=== PATIENT | female | born 1955 | race Two or more races ===

== ENCOUNTER 2019-01-25 09:01 | Inpatient (IN) | payer OTHER ==
[~2019-01-25] VITALS: Ht 165.1 cm; Wt 111.1 kg
[2019-01-25] MEDS ORDERED: HYZAAR 100-251 EACH (09:11)
[2019-01-25] MEDS ORDERED: SYNTHROID175 MCG (09:11)
[2019-01-25] MEDS ORDERED: METFORMIN HCL500 MG (09:11)
[2019-01-29] MEDS ORDERED: CIPRO500 MG PO (09:36)
[2019-01-29] MEDS ORDERED: FLAGYL500MG PO (09:36)
[2019-01-29] MEDS ORDERED: ACIDOPHILUS LA1 EACH PO (09:37)
[2019-01-29] MEDS ORDERED: DICY20TA PO (09:38)
== END 2019-01-29 11:05 | disposition home or self-care (01) | DRG 392 ==
LOC: ER 09:01 → MEDI 20:30
PROVIDERS: ADMIT Specialist
PROC: BW21ZZZ Computerized Tomography (CT Scan) of Abdomen and Pelvis (ICD-10-PCS; principal; 2019-01-25)
DX: K57.32 Diverticulitis of large intestine without perforation or abscess without bleeding (principal); E11.9 Type 2 diabetes mellitus without complications; I10 Essential (primary) hypertension; E03.8 Other specified hypothyroidism; E66.01 Morbid (severe) obesity due to excess calories

== ENCOUNTER 2019-03-22 06:31 | Day surgery (SDC) | payer OTHER ==
[~2019-03-22 06:31] MED LIST: ACIDOPHILUS LA1 EACH PO; CIPRO500 MG PO; COREG CR10 MG PO; DICY20TA PO; FLAGYL500MG PO; HYZAAR 100-251 EACH; METFORMIN HCL500 MG PO; SINGULAIR10 MG PO; SYNTHROID175 MCG; ZANTAC300 MG PO
== END 2019-03-22 16:00 | disposition home or self-care (01) ==
LOC: CIR.AMB 06:31
DX: N84.0 Polyp of corpus uteri (principal); N84.1 Polyp of cervix uteri

== ENCOUNTER 2022-08-08 02:21 | Emergency (ER) | payer OTHER ==
[~2022-08-08] VITALS: Ht 165.1 cm; Wt 104.3 kg
[2022-08-08] MEDS ORDERED: PEPCID AC20 MG PO (14:47)
[2022-08-08] MEDS ORDERED: ZOFRAN8 MG PO (14:47)
== END 2022-08-08 16:04 | disposition home or self-care (01) ==
LOC: ER 02:21
DX: R10.31 Right lower quadrant pain (principal); K57.30 Diverticulosis of large intestine without perforation or abscess without bleeding; E11.9 Type 2 diabetes mellitus without complications; Z79.84 Long term (current) use of oral hypoglycemic drugs; I10 Essential (primary) hypertension; Z88.0 Allergy status to penicillin

== ENCOUNTER 2022-08-17 08:57 | Emergency (ER) | payer OTHER ==
[~2022-08-17] VITALS: Ht 167.6 cm; Wt 85.3 kg
[~2022-08-17 08:57] MED LIST changes: +PEPCID AC20 MG PO; +ZOFRAN8 MG PO
== END 2022-08-17 12:02 | disposition home or self-care (01) ==
LOC: ER 08:57
DX: B02.9 Zoster without complications (principal); E11.9 Type 2 diabetes mellitus without complications; Z79.84 Long term (current) use of oral hypoglycemic drugs; I10 Essential (primary) hypertension; Z88.0 Allergy status to penicillin

== ENCOUNTER 2023-03-03 08:41 | Emergency (ER) | payer OTHER ==
[~2023-03-03] VITALS: Ht 165.1 cm; Wt 108.9 kg
[2023-03-03] MEDS ORDERED: LOVAZA1 GM PO (09:14)
[2023-03-03] MEDS ORDERED: CARVEDILOL12.5 MG (09:15)
[2023-03-03] MEDS ORDERED: CRESTOR10 MG PO (09:15)
[2023-03-03] MEDS ORDERED: COZAAR100 MG PO (09:15)
[2023-03-03] MEDS ORDERED: HYDRODIURIL12.5 MG PO (09:15)
== END 2023-03-03 11:46 | disposition home or self-care (01) ==
LOC: ER 08:41
DX: J45.909 Unspecified asthma, uncomplicated (principal); Z85.850 Personal history of malignant neoplasm of thyroid; I10 Essential (primary) hypertension; Z88.0 Allergy status to penicillin; E11.9 Type 2 diabetes mellitus without complications; Z79.84 Long term (current) use of oral hypoglycemic drugs

== ENCOUNTER 2023-07-05 08:23 | Outpatient (CLI) | payer OTHER ==
[~2023-07-05 08:23] MED LIST changes: +CARVEDILOL12.5 MG; +COZAAR100 MG PO; +CRESTOR10 MG PO; +HYDRODIURIL12.5 MG PO; +LOVAZA1 GM PO
[2023-07-05 09:51] LABS: HEMATOCRIT 39.8 % (36.0-45.00); HEMOGLOBIN 12.8 g/dL (12.0-15.00); MEAN CELL VOLUME 89.5 fL (80.00-100.00); MEAN CORPUSCULAR HEMOGLOBIN 28.9 pg (27.00-32.0); MEAN CORPUSCULAR HGB CONC 32.3 g/dl (32.0-36.0); PLATELET COUNT 281 K/uL (150-450); RED BLOOD COUNT 4.44 M/uL (4.00-6.00); RED CELL DISTRIBUTION WIDTH 15.3 % (11.5-14.5)
[2023-07-05 10:22] LABS: CALCIUM 8.1 mg/dL (8.5-10.1); CREATININE SERUM 1.27 mg/dL (0.55-1.02); GFR 41.72; POTASSIUM 3.76 mEq/L (3.5-5.1)
== END 2023-07-05 08:25 | disposition home or self-care (01) ==
LOC: LAB 08:23
DX: J02.9 Acute pharyngitis, unspecified (principal); R06.03 Acute respiratory distress; E55.9 Vitamin D deficiency, unspecified; J30.9 Allergic rhinitis, unspecified; Z88.0 Allergy status to penicillin

== ENCOUNTER 2023-09-14 08:24 | Emergency (ER) | payer OTHER ==
[~2023-09-14] VITALS: Ht 165.1 cm; Wt 116.6 kg
[2023-09-14 12:10] LABS: HEMATOCRIT 44.2 % (36.0-45.00); HEMOGLOBIN 14.6 g/dL (12.0-15.00); MEAN CELL VOLUME 86.6 fL (80.00-100.00); MEAN CORPUSCULAR HEMOGLOBIN 28.5 pg (27.00-32.0); PLATELET COUNT 279 K/uL (150-450); RED BLOOD COUNT 5.11 M/uL (4.00-6.00); RED CELL DISTRIBUTION WIDTH 15.7 % (11.5-14.5)
== END 2023-09-14 14:56 | disposition home or self-care (01) ==
LOC: ER 08:24
PROVIDERS: Emergency Medicine
DX: J06.9 Acute upper respiratory infection, unspecified (principal); Z20.822 Contact with and (suspected) exposure to COVID-19; Z88.0 Allergy status to penicillin
CPT/HCPCS: 36415; 71046; 94640; 96372; 99284; J2930

== ENCOUNTER → 2023-11-24 07:53 | Outpatient (CLI) | payer OTHER ==
[2023-11-24 08:41] LABS: HEMATOCRIT 40.7 % (36.0-45.00); HEMOGLOBIN 13.3 g/dL (12.0-15.00); MEAN CELL VOLUME 87.8 fL (80.00-100.00); MEAN CORPUSCULAR HEMOGLOBIN 28.6 pg (27.00-32.0); MEAN CORPUSCULAR HGB CONC 32.6 g/dl (32.0-36.0); PLATELET COUNT 328 K/uL (150-450); RED BLOOD COUNT 4.63 M/uL (4.00-6.00); RED CELL DISTRIBUTION WIDTH 15.6 % (11.5-14.5)
[2023-11-24 09:05] LABS: MYCOPLASMA PNEUMONIAE IGM NON REACTIVE (NO REACTIVE)
== END | disposition home or self-care (01) ==
LOC: RAD 07:53
DX: R05.9 Cough, unspecified (principal)

== ENCOUNTER 2023-12-13 07:38 | Outpatient (CLI) | payer OTHER ==
[2023-12-13 08:40] LABS: PH,URINE 5.5 (5.0-8.0); URINE APPEARANCE Clear; URINE BILIRRUBIN Negative (NEGATIVE); URINE BLOOD Small; URINE COLOR Yellow; URINE LEUKOCYTE Negative; URINE NITRATE Negative; URINE PROTEIN Negative (NEGATIVE); URINE UROBILINOGEN 0.2 E.U./dl
[2023-12-13 08:44] LABS: HEMATOCRIT 39.7 % (36.0-45.00); HEMOGLOBIN 13.2 g/dL (12.0-15.00); MEAN CORPUSCULAR HEMOGLOBIN 29.2 pg (27.00-32.0); MEAN CORPUSCULAR HGB CONC 33.2 g/dl (32.0-36.0); PLATELET COUNT 241 K/uL (150-450); RED BLOOD COUNT 4.51 M/uL (4.00-6.00); RED CELL DISTRIBUTION WIDTH 16.3 % (11.5-14.5); URINE BACTERIA 187.7 uL (0.0-1933); URINE EPITHELIAL CELLS 50.5 uL (0.0-38.8); URINE RBC 26.7 uL (0.0-20.8)
[2023-12-13 09:46] LABS: URINE GLUCOSE >=1000 MG/DL (NEGATIVE)
[2023-12-13 09:51] LABS: ALBUMIN 3.4 gm/dL (3.4-5.0); BILIRUBIN TOTAL 0.47 mg/dL (0.3-1.2); CALCIUM 8.8 mg/dL (8.5-10.1); CHOL HDL RATIO 2.2 (0-5.0); CREATININE SERUM 1.15 mg/dL (0.55-1.02); GFR 46.78; GLOBULINA 3.1 G/DL (2.4-3.5); POTASSIUM 4.07 mEq/L (3.5-5.1); TOTAL PROTEIN 6.5 gm/dL (6.4-8.2)
[2023-12-13 15:16] LABS: T4 FREE 1.22 NG/ML (0.76-1.46); TSH 2.22 uIU/mL (0.358-3.74)
== END 2023-12-13 07:39 | disposition home or self-care (01) ==
LOC: LAB 07:38
PROVIDERS: ATTEND Internal Medicine
DX: E03.8 Other specified hypothyroidism (principal); E78.5 Hyperlipidemia, unspecified; I10 Essential (primary) hypertension

== ENCOUNTER 2023-12-13 08:24 | Outpatient (CLI) | payer OTHER | END 2023-12-13 08:28 | disposition home or self-care (01) | LOC: RAD 08:24 | PROVIDERS: ATTEND Internal Medicine | DX: M70.70 Other bursitis of hip, unspecified hip (principal) ==

== ENCOUNTER 2024-03-21 08:06 | Outpatient (CLI) | payer OTHER ==
[2024-03-21 08:51] LABS: URINE APPEARANCE Clear; URINE BILIRRUBIN Negative (NEGATIVE); URINE COLOR Yellow; URINE LEUKOCYTE Negative; URINE NITRATE Negative; URINE PROTEIN Trace (NEGATIVE); URINE UROBILINOGEN 0.2 E.U./dl
[2024-03-21 08:51] LABS: HEMATOCRIT 41.8 % (36.0-45.00); HEMOGLOBIN 13.8 g/dL (12.0-15.00); MEAN CELL VOLUME 88.8 fL (80.00-100.00); MEAN CORPUSCULAR HEMOGLOBIN 29.3 pg (27.00-32.0); PLATELET COUNT 230 K/uL (150-450); RED CELL DISTRIBUTION WIDTH 16.8 % (11.5-14.5)
[2024-03-21 08:56] LABS: URINE BACTERIA 49.1 uL (0.0-1933); URINE EPITHELIAL CELLS 18.2 uL (0.0-38.8); URINE RBC 27.9 uL (0.0-20.8); URINE WBC 2.3 uL (0.0-23.2)
[2024-03-21 09:06] LABS: URINE BLOOD TRACE; URINE GLUCOSE >=1000 MG/DL (NEGATIVE)
[2024-03-21 09:53] LABS: ALBUMIN 3.5 gm/dL (3.4-5.0); BILIRUBIN TOTAL 0.45 mg/dL (0.3-1.2); CALCIUM 8.4 mg/dL (8.5-10.1); CHOL HDL RATIO 2.2 (0-5.0); CREATININE SERUM 1.03 mg/dL (0.55-1.02); GFR 53.13; GLOBULINA 3.2 G/DL (2.4-3.5); POTASSIUM 4.5 mEq/L (3.5-5.1); T4 TOTAL 9.37 UG/DL (4.8-13.9); TOTAL PROTEIN 6.7 gm/dL (6.4-8.2)
[2024-03-21 09:57] LABS: TSH 5.13 uIU/mL (0.358-3.74)
[2024-03-21 10:30] LABS: T3 TOTAL 0.564 ng/ml (0.846-2.02); VITAMIN D3 25 HYDROXY 37.44 ng/ml (30-120)
== END 2024-03-21 08:07 | disposition home or self-care (01) ==
LOC: LAB 08:06
PROVIDERS: ATTEND Anesthesiology
DX: E11.65 Type 2 diabetes mellitus with hyperglycemia (principal); E78.5 Hyperlipidemia, unspecified; I10 Essential (primary) hypertension; E03.8 Other specified hypothyroidism; E55.9 Vitamin D deficiency, unspecified; E11.9 Type 2 diabetes mellitus without complications; E03.9 Hypothyroidism, unspecified; E78.2 Mixed hyperlipidemia; Z12.11 Encounter for screening for malignant neoplasm of colon; N39.0 Urinary tract infection, site not specified; D64.0 Hereditary sideroblastic anemia

== ENCOUNTER 2024-03-27 08:45 | Outpatient (CLI) | payer OTHER ==
[2024-03-27 09:40] LABS: ob NEGATIVE (NEGATIVE)
== END 2024-03-27 08:51 | disposition home or self-care (01) ==
LOC: LAB 08:45
PROVIDERS: ATTEND Internal Medicine Cardiovascular Disease
DX: E03.9 Hypothyroidism, unspecified (principal); E11.9 Type 2 diabetes mellitus without complications; I10 Essential (primary) hypertension; E78.2 Mixed hyperlipidemia; Z12.11 Encounter for screening for malignant neoplasm of colon; N39.0 Urinary tract infection, site not specified; D64.0 Hereditary sideroblastic anemia; E55.9 Vitamin D deficiency, unspecified

== ENCOUNTER 2024-04-04 09:09 | Outpatient (CLI) | payer OTHER ==
[2024-04-04 10:07] LABS: HEMATOCRIT 42.8 % (36.0-45.00); HEMOGLOBIN 14.2 g/dL (12.0-15.00); MEAN CELL VOLUME 88.6 fL (80.00-100.00); MEAN CORPUSCULAR HEMOGLOBIN 29.3 pg (27.00-32.0); MEAN CORPUSCULAR HGB CONC 33.1 g/dl (32.0-36.0); PLATELET COUNT 212 K/uL (150-450); RED BLOOD COUNT 4.83 M/uL (4.00-6.00); RED CELL DISTRIBUTION WIDTH 16.3 % (11.5-14.5)
[2024-04-04 11:29] LABS: ALBUMIN 3.7 gm/dL (3.4-5.0); BILIRUBIN TOTAL 0.36 mg/dL (0.3-1.2); CALCIUM 8.5 mg/dL (8.5-10.1); CREATININE SERUM 1.12 mg/dL (0.55-1.02); GFR 48.23; GLOBULINA 2.9 G/DL (2.4-3.5); POTASSIUM 3.92 mEq/L (3.5-5.1); TOTAL PROTEIN 6.6 gm/dL (6.4-8.2)
[2024-04-04 11:42] LABS: TSH 17.9 uIU/mL (0.358-3.74)
== END 2024-04-04 09:22 | disposition home or self-care (01) ==
LOC: LAB 09:09
DX: N91.2 Amenorrhea, unspecified (principal); E78.5 Hyperlipidemia, unspecified; E34.9 Endocrine disorder, unspecified; E23.6 Other disorders of pituitary gland; R19.00 Intra-abdominal and pelvic swelling, mass and lump, unspecified site; A60.04 Herpesviral vulvovaginitis; K75.9 Inflammatory liver disease, unspecified

== ENCOUNTER 2024-04-06 14:03 | Outpatient (CLI) | payer OTHER | END 2024-04-06 14:13 | disposition home or self-care (01) | LOC: MAMO-SONO 14:03 | PROVIDERS: ATTEND Obstetrics & Gynecology | DX: N63.10 Unspecified lump in the right breast, unspecified quadrant (principal); N63.20 Unspecified lump in the left breast, unspecified quadrant; Z12.31 Encounter for screening mammogram for malignant neoplasm of breast ==

== ENCOUNTER 2024-10-25 07:15 | Inpatient (IN) | payer OTHER ==
[~2024-10-25] VITALS: Ht 165.1 cm; Wt 115.7 kg
[2024-10-25 08:09] LABS: URINE BACTERIA 8784.3 uL (0.0-1933); URINE RBC 40.8 uL (0.0-20.8); URINE WBC 59.5 uL (0.0-23.2)
[2024-10-25 08:11] LABS: PH,URINE 6.5; URINE BILIRRUBIN SMALL (NEGATIVE); URINE BLOOD SMALL; URINE GLUCOSE NEGATIVE (NEGATIVE); URINE KETONE NEGATIVE (NEGATIVE); URINE LEUKOCYTE NEGATIVE; URINE NITRATE NEGATIVE; URINE PROTEIN NEGATIVE (NEGATIVE); URINE UROBILINOGEN 0.2 E.U./dl
[2024-10-25 08:12] LABS: URINE CAST 0.73 uL (0.0-1.40)
[2024-10-25 08:13] LABS: URINE APPEARANCE CLEAR; URINE COLOR YELLOW
[2024-10-25 08:19] LABS: HEMATOCRIT 41.1 % (36.0-45.00); HEMOGLOBIN 13.6 g/dL (12.0-15.00); MEAN CELL VOLUME 87.5 fL (80.00-100.00); MEAN CORPUSCULAR HEMOGLOBIN 28.9 pg (27.00-32.0); PLATELET COUNT 321 K/uL (150-450); RED CELL DISTRIBUTION WIDTH 15.1 % (11.5-14.5)
[2024-10-25 08:22] LABS: INR 0.99; PARTIAL THROMBOPLASTIN TIME 31.3 SECONDS (22.0-34.0); PROTHROMBIN TIME 10.8 SECONDS (9.0-11.5)
[2024-10-25] MEDS ORDERED: GLIMEPIRIDE1 M1 PO (08:26)
[2024-10-25] MEDS ORDERED: TRULICITY0.75 MG/0. (08:26)
[2024-10-25 08:38] VITALS: BP 170/90
[2024-10-25 09:34] LABS: CHOL HDL RATIO 2.2 (0-5.0)
[2024-10-25 09:35] LABS: ALBUMIN 3.5 gm/dL (3.4-5.0); BILIRUBIN TOTAL 0.46 mg/dL (0.3-1.2); CALCIUM 9.1 mg/dL (8.5-10.1); CREATININE SERUM 0.98 mg/dL (0.55-1.02); GFR 56.1; GLOBULINA 3.4 G/DL (2.4-3.5); POTASSIUM 4.16 mEq/L (3.5-5.1); TOTAL PROTEIN 6.9 gm/dL (6.4-8.2)
[2024-10-25 10:32] LABS: RH POSITIVE
[2024-10-31] MEDS ORDERED: VANCOMYCIN HCL 1,000 MG VIAL ONE ×2 (08:55→09:03)
[2024-10-31] MEDS ORDERED: KETOROLAC TROMETHAMINE 60 MG VIAL IM ONE (09:03)
[2024-10-31] MEDS ORDERED: BUPIVACAINE HCL/MPF 0.5% 30ML VIAL ONE (09:03)
[2024-10-31] MEDS ORDERED: LIDOCAINE HCL 1%/EPINEPHRINE 20ML VIAL IJ ONE (09:04)
[2024-10-31] MEDS ORDERED: TRANEXAMIC ACID 100MG/1ML (1000MG) AMPUL IV ONE (09:04)
[2024-10-31] MEDS ORDERED: HYDROGEN PEROXIDE 473 ML BOTTLE TOP ONE (09:33)
[2024-10-31] MEDS ORDERED: POVIDONE-IODINE 118 ML BOTT TOP ONE (09:34)
[2024-10-31] MEDS ORDERED: MORPHINE SULFATE 4 MG/ML CARTRIDGE IV PRN (11:00)
[2024-10-31] MEDS ORDERED: ONDANSETRON HCL 2 MG/ML VIAL IV PRN (11:00)
[2024-10-31] MEDS ORDERED: SODIUM CHLORIDE 0.45 % 1,000 ML IV SCH (11:00)
[2024-10-31] MEDS ORDERED: OxyCODONE HCL 5 MG TABLET (ROXICODONE) PO PRN (11:00)
[2024-10-31] MEDS ORDERED: ACETAMINOPHEN 500 MG GEL..CAP PO SCH (12:00)
[2024-10-31 13:30] VITALS: BP 110/82; O2SAT 95
[2024-10-31 16:00] VITALS: BP 129/87; O2SAT 100
[2024-10-31] MEDS ORDERED: GABAPENTIN 300 MG CAPSULE PO SCH (17:00)
[2024-10-31] MEDS ORDERED: CARVEDILOL 12.5 MG TABLET PO SCH (17:00)
[2024-10-31] MEDS ORDERED: FAMOtidine 20 MG TABLET PO SCH (17:00)
[2024-10-31] MEDS ORDERED: VANCOMYCIN HCL 1,000 MG in 0.9 % SODIUM CHLORIDE 250 ML IV SCH (21:00)
[2024-11-01 01:24] VITALS: BP 126/77; O2SAT 95
[2024-11-01] MEDS ORDERED: LEVOTHYROXINE SODIUM 175 MCG TABLET PO SCH (06:00)
[2024-11-01 07:59] LABS: HEMATOCRIT 35.5 % (36.0-45.00); HEMOGLOBIN 11.6 g/dL (12.0-15.00); MEAN CELL VOLUME 88.9 fL (80.00-100.00); MEAN CORPUSCULAR HEMOGLOBIN 29.1 pg (27.00-32.0); MEAN CORPUSCULAR HGB CONC 32.7 g/dl (32.0-36.0); PLATELET COUNT 235 K/uL (150-450); RED BLOOD COUNT 3.99 M/uL (4.00-6.00); RED CELL DISTRIBUTION WIDTH 14.8 % (11.5-14.5)
[2024-11-01] MEDS ORDERED: ELIQUIS2.5 MG PO (08:15)
[2024-11-01] MEDS ORDERED: PERCOCET 5-3251 EACH PO (08:15)
[2024-11-01] MEDS ORDERED: CIPRO500 MG PO (08:15)
[2024-11-01 08:30] VITALS: BP 143/83; O2SAT 100
[2024-11-01] MEDS ORDERED: SENNOSIDES 1 TAB TABLET PO SCH (09:00)
[2024-11-01] MEDS ORDERED: APIXABAN 2.5 MG TABLET PO SCH (09:00)
[2024-11-01] MEDS ORDERED: LOSARTAN POTASSIUM 100 MG TABLET PO SCH (09:00)
[2024-11-01] MEDS ORDERED: SOD FERRIC GLUC COMPLX/SUCROSE 62.5 MG/5 ML AMPUL IV SCH (13:56)
[2024-11-01] MEDS ORDERED: Cyanocobalamin/Mecobalamin 1 TAB.SL SL SCH (13:59)
[2024-11-01 16:00] VITALS: BP 157/81; O2SAT 95
[2024-11-01] MEDS ORDERED: VITAMIN B COMPLEX 1 EACH PO SCH (17:00)
[2024-11-02] VITALS: BP 127/73; O2SAT 96
[2024-11-02 06:22] LABS: HEMATOCRIT 33.4 % (36.0-45.00); HEMOGLOBIN 11.1 g/dL (12.0-15.00); MEAN CELL VOLUME 88.4 fL (80.00-100.00); MEAN CORPUSCULAR HEMOGLOBIN 29.2 pg (27.00-32.0); MEAN CORPUSCULAR HGB CONC 33.1 g/dl (32.0-36.0); PLATELET COUNT 239 K/uL (150-450); RED BLOOD COUNT 3.78 M/uL (4.00-6.00); RED CELL DISTRIBUTION WIDTH 14.9 % (11.5-14.5)
[2024-11-02 08:00] VITALS: BP 90/72
[2024-11-02] MEDS ORDERED: IRON FUM,PS/FOLIC ACID/VITC/B3 1 CAP CAPSULE PO SCH (09:00)
[2024-11-02] MEDS ORDERED: MORPHINE SULFATE 4 MG/ML CARTRIDGE IV PRN (14:45)
[2024-11-02 16:00] VITALS: BP 153/87; O2SAT 98
== END 2024-11-02 22:05 | DRG 470 ==
LOC: O/R 10-31 06:00 → SURG 10-31 06:00 → SURH 10-31 07:15 → SURG 10-31 12:36 → SURH 10-31 17:00 → SURG 11-02 22:05
PROVIDERS: ADMIT Orthopaedic Surgery; ATTEND Orthopaedic Surgery
PROC: 0SRD0J9 Replacement of Left Knee Joint with Synthetic Substitute, Cemented, Open Approach (ICD-10-PCS; principal; 2024-10-31 17:00)
DX: M17.12 Unilateral primary osteoarthritis, left knee (principal); D62 Acute posthemorrhagic anemia; M22.12 Recurrent subluxation of patella, left knee; E66.9 Obesity, unspecified; I10 Essential (primary) hypertension; E11.9 Type 2 diabetes mellitus without complications; Z79.4 Long term (current) use of insulin

== ENCOUNTER 2025-06-05 09:11 | Outpatient (CLI) | payer OTHER ==
[~2025-06-05 09:11] MED LIST changes: +ELIQUIS2.5 MG PO; +GLIMEPIRIDE1 M1 PO; +PERCOCET 5-3251 EACH PO; +TRULICITY0.75 MG/0.
== END 2025-06-05 09:15 | disposition home or self-care (01) ==
LOC: RAD 09:11
PROVIDERS: ATTEND Internal Medicine Pulmonary Disease
DX: J45.41 Moderate persistent asthma with (acute) exacerbation (principal)

== ENCOUNTER 2025-06-05 09:43 | Outpatient (CLI) | payer OTHER | END 2025-06-05 10:03 | disposition home or self-care (01) | LOC: LAB 09:43 | PROVIDERS: ATTEND Internal Medicine Pulmonary Disease | DX: J45.41 Moderate persistent asthma with (acute) exacerbation (principal); E83.9 Disorder of mineral metabolism, unspecified ==

== ENCOUNTER 2025-08-06 11:57 | Outpatient (CLI) | payer OTHER | END 2025-08-06 12:00 | disposition home or self-care (01) | LOC: RAD 11:57 | PROVIDERS: ATTEND Obstetrics & Gynecology Obstetrics | DX: M25.561 Pain in right knee (principal) ==